=== PATIENT | female | born 1970 | race Caucasian/White ===

== ENCOUNTER 2016-12-17 08:43 | Emergency (ER) | payer BC ==
[~2016-12-17] VITALS: Ht 165.1 cm; Wt 79.9 kg
[~2016-12-17 08:43] MED LIST: ALBU8.5H3 IH
[2016-12-17 08:46] VITALS: Ht 165.1 cm; Wt 79.9 kg
[2016-12-17] MEDS ORDERED: ALBUTEROL 0.083% (NEB) 2.5 MG/3 ML AMP HHN STA (09:38)
[2016-12-17] MEDS ORDERED: IPRATROPIUM (NEB) 0.5 MG/2.5 ML AMP HHN ONE (10:00)
[2016-12-17] MEDS ORDERED: morphine 10 MG INJ IM ONE (10:00)
[2016-12-17] MEDS ORDERED: predniSONE 20 MG TAB PO ONE (10:00)
--- NOTE | 2016-12-17 11:05 | RADRPT ---
PROCEDURE: XR Chest. CLINICAL INDICATION: Wheezing TECHNIQUE: Chest AP portable. COMPARISON: 05/22/2014 FINDINGS: The mediastinal structures are unremarkable. The heart is normal in size and configuration. The pu lmonary vascularity is normal. The lung real are unremarkable. No consolidation is identified. The pleural spaces are unremarkable. The axial skeleton is unremarkable. IMPRESSION: No active intrathoracic disease. RPTAT: HGDB .Partha Hutton MD, MD Date Time Electronically viewed and signed by .Partha Hutton MD, MD on 12/17/2016 11:05 .B/
[2016-12-17] MEDS ORDERED: FIORICET PO (11:07)
[2016-12-17] MEDS ORDERED: PRED20TA PO (11:07)
[2016-12-17] MEDS ORDERED: ALBU18HF INHALATION (11:07)
[2016-12-17] MEDS ORDERED: HYDR-906 PO (11:30)
[2016-12-17 11:36] VITALS: BP 104/60; PULSE 78; RESP 18; TEMP 98.1
--- NOTE | 2016-12-17 13:12 | ERD ---
ER Documentation Chief Complaint Date/Time DATE: 12/17/16 TIME: 13:08 Chief Complaint YANG HPI This patient is a 38-year-old female with history of migraines and asthma presenting to the emergency department for migraines for the past 4 days. Additionally she reports wheezing. She states symptoms are constant. She took Tylenol at home with mild relief of symptoms. The patient denies fevers, chills , urinary symptoms, or other symptoms at this time. ROS All systems reviewed and are negative except as per history of present illness. Medications Home Meds Active Scripts Hydrocodone/Acetaminophen ([place] 5-325 Tablet) 1 Each Tablet, 1 TAB PO Q6H Y for PAIN, #7 TAB Prov:YAID CRAWFORD PA-C 12/17/16 Acetamin/Butalbital/Caffeine* (Fioricet*) [id number] Tab, 1 TAB PO Q6H Y for PAIN, #30 TAB Prov:YADI CRAWFORD PA-C 12/17/16 Albuterol Sulfate* (Ventolin HFA*) 18 Gm Hfa.aer.ad, 2 PUFF INHALATION Q4H, #1 INHALER Prov:YADI CRAWFORD PA-C 12/17/16 Prednisone* (Prednisone*) 20 Mg Tab, 40 MG PO DAILY for 5 Days, #10 TAB Prov:YADI CRAWFORD PA-C 12/17/16 Reported Medications Albuterol Sulfate* (Proair HFA*) 8.5 Gm Hfa.aer.ad, 8.5 GM IH PRN 01/01/12 Allergies Allergies: Coded Allergies: No Known Allergy (Unverified , 12/17/16) PMhx/Soc History of Surgery: No Anesthesia Reaction: No Hx Neurological Disorder: No Hx Respiratory Disorders: Yes (ASTHMA) Hx Cardiac Disorders: No Hx Psychiatric Problems: No Hx Miscellaneous Medical Probl: No Hx Alcohol Use: Yes Hx Substance Use: No Hx Tobacco Use: Yes Smoking Status: Current some day smoker FmHx Noncontributory to chief complaint. Physical Exam Vitals Vital Signs Date Time Temp Pulse Resp B/P Pulse Ox O2 Delivery O2 Flow Rate FiO2 12/17/16 11:36 98.1 78 18 104/60 96 Room Air 12/17/16 09:55 88 20 96 21 12/17/16 08:46 98.1 80 18 139/78 99 Physical Exam Const: The patient is resting comfortably in no acute distress. Head: Atraumatic Eyes: Normal Conjunctiva ENT: Normal External Ears, Nose and Mouth. Neck: Full range of motion..~ No meningismus. Resp: Inspiratory wheezing to bilateral upper lung real. There are no crackles or rhonchi auscultated. Cardio: Regular rate and rhythm, no murmurs Abd: Soft, non tender, non distended. Normal bowel sounds Skin: No petechiae or rashes Back: No midline or flank tenderness Ext: No cyanosis, or edema Neur: Awake and alert. There is no photophobia or meningeal signs. Psych: Normal Mood and Affect Results 24 hrs Current Medications Medications (Trade) Dose Ordered Sig/Muriel Route PRN Reason Start Time Stop Time Status Last Admin Dose Admin Prednisone (Prednisone) 40 mg ONCE ONCE PO 12/17/16 10:00 12/17/16 10:01 DC 12/17/16 09:52 Morphine Sulfate (morphine) 4 mg ONCE ONCE IM 12/17/16 10:00 12/17/16 10:01 DC 12/17/16 09:54 Albuterol (Proventil 0.083% (Neb)) 2.5 mg ONCE STAT N 12/17/16 09:38 12/17/16 09:41 DC 12/17/16 09:51 Ipratropium [place] (Atrovent 0.02% (Neb)) 0.5 mg ONCE ONCE HHN 12/17/16 10:00 12/17/16 10:01 DC 12/17/16 09:51 Procedures/[facility] EMERGENCY DEPARTMENT COURSE / MEDICAL DECISION MAKING: This is a 46-year-old female who comes to the emergency room secondary to complaints of headache and wheezing The patient was given medication nebulizer and IM morphine in the department. On re-evaluation, the patient was feeling improved. Radiology: PROCEDURE: XR Chest. CLINICAL INDICATION: Wheezing TECHNIQUE: Chest AP portable. COMPARISON: 05/22/2014 FINDINGS: The mediastinal structures are unremarkable. The heart is normal in size and configuration. The pulmonary vascularity is normal. The lung real are unremarkable. No consolidation is identified. The pleural spaces are unremarkable. The axial skeleton is unremarkable. IMPRESSION: No active intrathoracic disease. RPTAT: HGDB .Partha Hutton MD, Date Time Electronically viewed and signed by .Partha Hutton MD, on 12/17/2016 11:05 .B/ CC: YADI CRAWFORD PA-C The primary diagnosis is headache. Secondary diagnosis is asthma exacerbation. Other diagnoses include wheezing. I have low suspicion for bronchitis, pneumonia, status asthmaticus, status migrainosus, meningitis, septicemia, or other emergent conditions at this time. Discharge: I have discussed the lab results and diagnostic findings with the patient and answered any questions or concerns. The patient was discharged with a prescription for prednisone, Ventolin, Fioricet, and 7 Lizton to be taken only as needed for severe acute pain. [employer] database was utilized to rule out drug- seeking behavior prior to prescribing Liz[place] and Fioricet. The patient was advised to followup with their PMD in 1-2 days and to return to the Emergency Department if there are any new or worsening symptoms. The patient understood and agreed with the diagnosis, treatment and plan. The patient is stable for discharge at this time. Departure Diagnosis: Primary Impression: Headache Headache type: unspecified Headache chronicity pattern: acute headache Intractability: not intractable Qualified Code: R51 - Acute nonintractable headache, unspecified headache type Additional Impressions: Asthma exacerbation Wheezing Condition: Fair Patient Instructions: Self-Care for Headaches, Asthma Referrals: [facility] YOU HAVE RECEIVED A MEDICAL SCREENING EXAM AND THE RESULTS INDICATE THAT YOU DO NOT HAVE A CONDITION THAT REQUIRES URGENT TREATMENT IN THE EMERGENCY DEPARTMENT. FURTHER EVALUATION AND TREATMENT OF YOUR CONDITION CAN WAIT UNTIL YOU ARE SEEN IN YOUR DOCTORS OFFICE WITHIN THE NEXT 1-2 DAYS. IT IS YOUR RESPONSIBILITY TO MAKE AN APPOINTMENT FOR FOLOW-UP CARE. IF YOU HAVE A PRIMARY DOCTOR --you should call your primary doctor and schedule an appointment IF YOU DO NOT HAVE A PRIMARY DOCTOR YOU CAN CALL OUR PHYSICIAN REFERRAL HOTLINE AT IF YOU CAN NOT AFFORD TO SEE A PHYSICIAN YOU CAN CHOSE FROM THE FOLLOWING [facility] [address] [facility]. [facility] [address] [facility]. [facility] [address] [facility] [address] [facility] [address] [facility]. [facility] [address] Additional Instructions: Follow-up with your primary care physician within 1 week. Return to the emergency department immediately should you have any new or worsening symptoms, uncontrolled fevers, or other unexplained symptoms. Take all medications as directed. YADI CRAWFORD PA-C Dec 17, 2016 13:11
== END 2016-12-17 11:37 | disposition home or self-care (01) ==
LOC: FTE 08:43
DX: R51 Headache (principal); J45.901 Unspecified asthma with (acute) exacerbation; F17.210 Nicotine dependence, cigarettes, uncomplicated
CPT/HCPCS: 71010; 94664; 96372; J2270; J7512; Z7502; Z7610; 94640

== ENCOUNTER 2017-04-24 03:53 | Emergency (ER) | payer BC ==
[~2017-04-24] VITALS: Ht 170.2 cm; Wt 85.0 kg
[~2017-04-24 03:53] MED LIST changes: +ALBU18HF INHALATION; +FIORICET PO; +HYDR-906 PO; +PRED20TA PO; +PROP50TA17 PO
[2017-04-24 03:58] VITALS: Ht 170.2 cm; Wt 85.0 kg
[2017-04-24] MEDS ORDERED: ALBUTEROL 0.083% (NEB) 2.5 MG/3 ML AMP INH ONE (04:30)
[2017-04-24] MEDS ORDERED: IPRATROPIUM (NEB) 0.5 MG/2.5 ML AMP INH ONE (04:30)
--- NOTE | 2017-04-24 04:32 | RADRPT ---
PROCEDURE: Chest. CLINICAL INDICATION: Shortness of breath. TECHNIQUE: Single frontal view of the chest was obtained. COMPARISON: None. FINDINGS: The cardiac silhouette is within normal limits. The aortic arch is unremarkable. There is left aminata r prominence. There is no vascular congestion or pleural effusion. There is no pneumothorax. IMPRESSION: Left hilar prominence could be due to vascular prominence or adenopathy. Further evaluation can be made by CT chest. .Missael Willis MD, Date Time Electronically viewed and signed by .Missael Willis MD, on 04/24/2017 04:32 .T/
[2017-04-24 04:44] LABS: BASOPHILS % 0.5 % (0.0-2.0); EOSINOPHILS % 0.3 % (0.0-7.0); HEMATOCRIT 37.6 % (37.0-47.0); HEMOGLOBIN 12.7 g/dl (12.0-16.0); LYMPHOCYTES # 1.4 10^3/ul (0.8-2.9); LYMPHOCYTES % 15.7 % (15.0-51.0); MEAN CORPUSCULAR HEMOGLOBIN 31.4 pg (29.0-33.0); MEAN CORPUSCULAR HGB CONC 33.8 g/dl (32.0-37.0); MEAN CORPUSCULAR VOLUME 93.1 fl (82.0-101.0); MEAN PLATELET VOLUME 10.7 fl (7.4-10.4); MONOCYTE # 0.6 10^3/ul (0.3-0.9); MONOCYTES % 6.3 % (0.0-11.0); PLATELET COUNT 208 10^3/UL (140-415); RED BLOOD COUNT 4.04 10^6/ul (4.20-5.40); WHITE BLOOD COUNT 8.7 10^3/ul (4.8-10.8)
[2017-04-24 04:58] LABS: CALCIUM 9.6 mg/dl (8.4-10.2); CREATININE 0.75 mg/dl (0.44-1.00); POTASSIUM 3.4 mmol/L (3.5-5.1)
[2017-04-24] MEDS ORDERED: morphine 4 MG/ML VIAL IV STA (05:00)
[2017-04-24] MEDS ORDERED: ONDANSETRON 4 MG INJ IV STA (05:00)
--- NOTE | 2017-04-24 05:20 | ERD ---
ER Documentation Chief Complaint Date/Time DATE: 04/24/17 TIME: 05:19 Chief Complaint cough,fever,left chest pain,SOB HPI 38-year-old female cough fever left-sided chest pain shortness of breath. Cough been going on for the past 2-3 days. No nausea no vomiting no chills. Mildly productive. No other current issues. ROS All systems reviewed and are negative except as per history of present illness. Medications Home Meds Reported Medications Albuterol Sulfate* (Proair HFA*) 8.5 Gm Hfa.aer.ad, 8.5 GM IH QID Y 01/11/13 Propylthiouracil* (PTU*) 50 Mg Tab, 100 MG PO BID 01/11/13 Allergies Allergies: Coded Allergies: No Known Allergy (Unverified , 10/21/13) PMhx/Soc History of Surgery: Yes () Anesthesia Reaction: No Hx Neurological Disorder: Yes (migraines) Hx Respiratory Disorders: Yes (asthma) Hx Cardiac Disorders: No Hx Psychiatric Problems: Yes (depression) Hx Miscellaneous Medical Probl: Yes (dysmenorrhea) Hx Alcohol Use: No Hx Substance Use: No Hx Tobacco Use: No Smoking Status: Never smoker Physical Exam Vitals Vital Signs Date Time Temp Pulse Resp B/P Pulse Ox O2 Delivery O2 Flow Rate FiO2 04/24/17 04:33 99.0 93 20 137/77 100 Nasal Cannula 2.0 04/24/17 04:33 Nasal Cannula 2 04/24/17 04:33 2.0 04/24/17 04:33 86 26 100 Nasal Cannula 2.0 04/24/17 03:58 100.6 103 18 129/73 98 Physical Exam Const: [] Head: Atraumatic Eyes: Normal Conjunctiva ENT: Normal External Ears, Nose and Mouth. Neck: Full range of motion..~ No meningismus. Resp: Clear to auscultation bilaterally Cardio: Regular rate and rhythm, no murmurs Abd: Soft, non tender, non distended. Normal bowel sounds Skin: No petechiae or rashes Back: No midline or flank tenderness Ext: No cyanosis, or edema Neur: Awake and alert Psych: Normal Mood and Affect Result Diagram: 04/24/1742004/24/17420 Results 24 hrs Laboratory Tests Test 04/24/17 04:21 White Blood Count 8.710^3/ul Red Blood Count 4.0410^6/ul Hemoglobin 12.7g/dl Hematocrit 37.6% Mean Corpuscular Volume 93.1fl Mean Corpuscular Hemoglobin 31.4pg Mean Corpuscular Hemoglobin Concent 33.8g/dl Red Cell Distribution Width 12.0% Platelet Count 05454^3/UL Mean Platelet Volume 10.7fl Neutrophils % 77.0% Lymphocytes % 15.7% Monocytes % 6.3% Eosinophils % 0.3% Basophils % 0.5% Nucleated Red Blood Cells % 0.0/100WBC Neutrophils # (Manual) 710^3/ul Lymphocytes # 1.410^3/ul Monocytes # 0.610^3/ul Eosinophils # 0.010^3/ul Basophils # 0.010^3/ul Nucleated Red Blood Cells # 0.010^3/ul Sodium Level 145mmol/L Potassium Level 3.4mmol/L Chloride Level 99mmol/L Carbon Dioxide Level 28mmol/L Anion Gap 21 Blood Urea Nitrogen 10mg/dl Creatinine 0.75mg/dl Glucose Level 126mg/dl Calcium Level 9.6mg/dl Current Medications Medications (Trade) Dose Ordered Sig/Muriel Route PRN Reason Start Time Stop Time Status Last Admin Dose Admin Albuterol (Proventil 0.083% (Neb)) 2.5 mg ONCE ONCE INH 04/24/17 04:30 04/24/17 04:31 DC 04/24/17 04:32 Ipratropium [place] (Atrovent 0.02% (Neb)) 0.5 mg ONCE ONCE INH 04/24/17 04:30 04/24/17 04:31 DC 04/24/17 04:32 Morphine Sulfate (morphine) 4 mg ONCE STAT IV 04/24/17 05:00 04/24/17 05:01 DC Ondansetron HCl (Zofran Inj) 4 mg ONCE STAT IV 04/24/17 05:00 04/24/17 05:01 DC Procedures/MDM EKG: Rate/Rhythm: Normal Sinus Rhythm QRS, ST, T-waves: No changes consistent w/ acute ischemia Impression: No evidence of ischemia or arrhythmia Chest X-ray 1V Interpreted by me: Soft Tissue: No acute abnormalities Bones: No acute abnormalities Mediastinum/Cardiac Silhouette/Lungs: Left upper lobe infiltrate Medical decision-makin female mild left upper lobe pneumonia. At this point clinically stable for outpatient management. Given dose of Rocephin and. Follow with PCP. Return for worsening symptoms. Departure Diagnosis: Primary Impression: Pneumonia Pneumonia type: due to unspecified organism Laterality: left Lung location : upper lobe of lung Qualified Code: J18.1 - Pneumonia of left upper lobe due to infectious organism Condition: Stable YADI LECHUGA Apr 24, 2017 05:20
[2017-04-24] MEDS ORDERED: BENZ100C70 PO (05:22)
[2017-04-24] MEDS ORDERED: AZIT250T94 PO (05:22)
[2017-04-24] MEDS ORDERED: PRED20TA PO (05:22)
[2017-04-24] MEDS ORDERED: ALBU18HF INHALATION (05:22)
[2017-04-24] MEDS ORDERED: CEFTRIAXONE 1 GM/50 ML (PMX) 50 ML IVPB ONE (05:30)
[2017-04-24 06:05] VITALS: BP 131/82; PULSE 85; RESP 16
[2017-04-24] MEDS ORDERED: HYDR-902 PO (06:21)
[2017-04-24] MEDS ORDERED: predniSONE 20 MG TAB PO ONE (06:30)
[2017-04-24] MEDS ORDERED: HYDROCODONE/APAP (10/325) TAB PO ONE (06:30)
[2017-04-24] MEDS ORDERED: IBUP-1542 PO (06:39)
[2017-04-24 06:59] VITALS: TEMP 97.4
== END 2017-04-24 07:00 | disposition home or self-care (01) ==
LOC: E/R 03:53 → MERGE 03:53 → E/R 07:00
DX: J18.1 Lobar pneumonia, unspecified organism (principal); J45.909 Unspecified asthma, uncomplicated
CPT/HCPCS: 36415; 71010; 80048; 83605; 85025; 87040; 94640; 96374; 96375; J0696; J2270; J2405; Z7502; Z7610

== ENCOUNTER 2017-05-22 21:55 | Emergency (ER) | payer BC ==
[~2017-05-22] VITALS: Ht 167.6 cm; Wt 92.5 kg
[~2017-05-22 21:55] MED LIST changes: +AZIT250T94 PO; +BENZ100C70 PO; +HYDR-902 PO; +IBUP-1542 PO; -PROP50TA17 PO
[2017-05-22 22:42] VITALS: Ht 167.6 cm; Wt 92.5 kg
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
[2017-05-22] MEDS ORDERED: ACETAMINOPHEN 325 MG TAB PO ONE (23:30)
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
[2017-05-23] MEDS ORDERED: LORAZEPAM 2 MG INJ IV ONE (00:30)
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
[2017-05-23] MEDS ORDERED: ACET500C5 PO (01:21)
[2017-05-23] MEDS ORDERED: IBUP-1542 PO ×2 (01:21→13:05)
[2017-05-23] MEDS ORDERED: LORAZEPAM 2 MG INJ IV STA (01:40)
[2017-05-23 01:55] LABS: BASOPHIL # 0.1 10^3/ul (0.0-0.1); BASOPHILS % 0.6 % (0.0-2.0); EOSINOPHILS # 0.1 10^3/ul (0.0-0.5); EOSINOPHILS % 1.6 % (0.0-7.0); HEMATOCRIT 39.6 % (37.0-47.0); HEMOGLOBIN 13.4 g/dl (12.0-16.0); LYMPHOCYTES # 2.3 10^3/ul (0.8-2.9); LYMPHOCYTES % 28.2 % (15.0-51.0); MEAN CORPUSCULAR HEMOGLOBIN 31.2 pg (29.0-33.0); MEAN CORPUSCULAR HGB CONC 33.8 g/dl (32.0-37.0); MEAN CORPUSCULAR VOLUME 92.3 fl (82.0-101.0); MEAN PLATELET VOLUME 10.8 fl (7.4-10.4); MONOCYTE # 0.9 10^3/ul (0.3-0.9); MONOCYTES % 11.4 % (0.0-11.0); NEUTROPHIL # 4.7 10^3/ul (1.6-7.5); NEUTROPHILS % 57.7 % (39.0-77.0); PLATELET COUNT 239 10^3/UL (140-415); RED BLOOD COUNT 4.29 10^6/ul (4.20-5.40); RED CELL DISTRIBUTION WIDTH 12.1 % (11.5-14.5); WHITE BLOOD COUNT 8.2 10^3/ul (4.8-10.8)
[2017-05-23] MEDS ORDERED: HALOPERIDOL 5 MG INJ IM ONE (02:00)
[2017-05-23] MEDS ORDERED: DIPHENHYDRAMINE 50 MG INJ IV ONE (02:00)
[2017-05-23 02:07] LABS: ADD UMIC YES; UR ASCORBIC ACID NEGATIVE (NEGATIVE); UR BACTERIA FEW /HPF (NONE SEEN); UR BILIRUBIN (Dip) 1+ mg/dL (NEGATIVE); UR BLOOD (Dip) NEGATIVE (NEGATIVE); UR CLARITY CLOUDY (CLEAR); UR COLOR AMBER (YELLOW); UR GLUCOSE (Dip) NEGATIVE (NEGATIVE); UR KETONES (Dip) TRACE mg/dL (NEGATIVE); UR LEUKOCYTE ESTERASE (Dip) NEGATIVE Leu/ul (NEGATIVE); UR MUCUS MANY /HPF (NONE SEEN); UR NITRITE (Dip) NEGATIVE (NEGATIVE); UR RBC 4 /HPF (0-5); UR SPECIFIC GRAVITY (Dip) 1.024 (1.003-1.030); UR SQUAMOUS EPITHELIAL CELL FEW /HPF (FEW); UR TOTAL PROTEIN (Dip) 2+ mg/dl (NEGATIVE); UR UROBILINOGEN (Dip) 2+ mg/dL (NEGATIVE); UR WBC CLUMPS FEW /HPF (NONE SEEN)
[2017-05-23 02:10] LABS: BARBITURATES Negative (NEGATIVE); BENZODIAZEPINES Positive (NEGATIVE); CANNABINOIDS Negative (NEGATIVE); COCAINE Negative (NEGATIVE); OPIATES Negative (NEGATIVE)
[2017-05-23 02:21] LABS: ALANINE AMINOTRANSFERASE 33 IU/L (13-69); ALBUMIN 4.8 g/dl (3.3-4.9); ALBUMIN/GLOBULIN RATIO 1.37; ALKALINE PHOSPHATASE 76 IU/L (42-121); ANION GAP 18 (8-16); ASPARTATE AMINO TRANSFERASE 41 IU/L (15-46); BILIRUBIN,INDIRECT 0.4 mg/dl (0-1.1); BILIRUBIN,TOTAL 0.4 mg/dl (0.2-1.3); BLOOD UREA NITROGEN 23 mg/dl (7-20); CALCIUM 9.9 mg/dl (8.4-10.2); CARBON DIOXIDE 26 mmol/L (21-31); CHLORIDE 104 mmol/L (97-110); CREATININE 1.63 mg/dl (0.44-1.00); GLUCOSE 91 mg/dl (70-220); POTASSIUM 4.1 mmol/L (3.5-5.1); SODIUM 144 mmol/L (135-144); TOTAL PROTEIN 8.3 g/dl (6.1-8.1)
[2017-05-23 02:25] LABS: ACETAMINOPHEN < 10.0 ug/ml (10.0-30.0); ETHANOL < 10.0 mg/dl; SALICYLATE < 1.0 mg/dl (5.0-30.0)
[2017-05-23] MEDS ORDERED: HALOPERIDOL 5 MG INJ IV ONE (02:30)
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
[2017-05-23] MEDS ORDERED: DIVA125T14 PO (08:12)
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
[2017-05-23 13:18] VITALS: BP 119/65; PULSE 81; RESP 20
[2017-05-23 13:20] VITALS: TEMP 98.7
== END 2017-05-23 13:21 | disposition home or self-care (01) ==
LOC: FTE 21:55 → E/R 05-23 13:21
DX: S20.219A Contusion of unspecified front wall of thorax, initial encounter (principal); F31.0 Bipolar disorder, current episode hypomanic; J45.909 Unspecified asthma, uncomplicated; F17.210 Nicotine dependence, cigarettes, uncomplicated; N30.00 Acute cystitis without hematuria; F15.20 Other stimulant dependence, uncomplicated; R93.0 Abnormal findings on diagnostic imaging of skull and head, not elsewhere classified; V49.49XA Driver injured in collision with other motor vehicles in traffic accident, initial encounter
CPT/HCPCS: 36415; 70450; 71100; 80053; 80164; 80306; 80307; 81001; 84703; 85025; 96374; 96375; 96376; J1200; J1630; J2060; P9612; Z7502; Z7610